=== PATIENT | male | born 1970 | race Caucasian/White ===

== ENCOUNTER 2024-10-10 13:18 | Emergency (ER) | payer OTHER ==
[~2024-10-10] VITALS: Ht 170.2 cm; Wt 71.0 kg
[2024-10-10 13:21] VITALS: O2SAT 98
[2024-10-10 14:00] VITALS: BP 122/80; PULSE 88; RESP 18; TEMP 36.8; O2SAT 98
[2024-10-10] MEDS ORDERED: APIX5TAB MT (23:58)
== END 2024-10-10 14:00 ==
LOC: ER 13:18
DX: M79.672 Pain in left foot (principal)
CPT/HCPCS: 73630; 99283

== ENCOUNTER 2024-10-10 23:01 | Emergency (ER) | payer OTHER ==
[~2024-10-10] VITALS: Ht 182.9 cm; Wt 59.0 kg
[2024-10-10 23:23] VITALS: TEMP 36.7; O2SAT 100
[2024-10-10] MEDS ORDERED: APIX5TAB MT (23:58)
[2024-10-11 00:19] VITALS: BP 122/85; PULSE 78; RESP 15; O2SAT 100
== END 2024-10-11 00:21 ==
LOC: ER 23:01
DX: Z76.0 Encounter for issue of repeat prescription (principal); Z86.718 Personal history of other venous thrombosis and embolism; I10 Essential (primary) hypertension
CPT/HCPCS: 99283